=== PATIENT | male | born 1955 | race Caucasian/White ===

== ENCOUNTER 2025-05-02 23:33 | Inpatient (IN) | payer OTHER ==
[~2025-05-02] VITALS: Ht 170.2 cm; Wt 95.3 kg
[2025-05-03 00:13] LABS: PLATELET COUNT (AUTO) 196 K/uL (150-450); RED BLOOD CELL COUNT(AUTO) 4.36 MIL/uL (4.5-6.0); RED CELL DISTRIBUTION WIDTH 13.6 % (11.5-15.0); WHITE BLOOD COUNT (AUTO) 6.2 K/uL (4.3-11.0)
[2025-05-03] MEDS ORDERED: NITROGLYCERIN PACKET 1 GM PACKET ONE (00:18)
[2025-05-03] MEDS ORDERED: ASPIRIN 325 MG TABLET ONE (00:18)
[2025-05-03 00:20] LABS: CALCIUM, SERUM 8.9 mg/dL (8.5-10.1); CREATININE 0.9 mg/dL (0.6-1.3); SODIUM SERUM 143 mmol/L (136-145); UREA NITROGEN, BLOOD 22 mg/dL (7-18)
[2025-05-03] MEDS: ASPIRIN 325 MG TABLET PO ONE (00:24)
[2025-05-03] MEDS: NITROGLYCERIN PACKET 1 GM PACKET TD ONE (00:25)
[2025-05-03 00:46] LABS: INR 1.07 (0.91-1.10)
[2025-05-03] MEDS ORDERED: MORPHINE SULFATE INJ 4 MG/ML DISP.SYRIN ONE (01:02)
[2025-05-03] MEDS ORDERED: ONDANSETRON HCL/PF 4 MG/2 ML VIAL ONE (01:02)
[2025-05-03] MEDS: MORPHINE SULFATE INJ 2 MG/ML DISP.SYRIN IV ONE (01:15)
[2025-05-03] MEDS: ONDANSETRON HCL/PF 4 MG/2 ML VIAL IVP ONE (01:15)
[2025-05-03] MEDS ORDERED: MAG HYDROX/AL HYDROX/SIMETH 30 ML UDC PO PRN (02:00)
[2025-05-03] MEDS ORDERED: Z GUARD REMEDY 4 OZ OINT TP PRN (02:00)
[2025-05-03] MEDS ORDERED: MAGNESIUM HYDROXIDE 30 ML UDC PO PRN (02:00)
[2025-05-03] MEDS: MORPHINE SULFATE INJ 2 MG/ML DISP.SYRIN IV PRN (06:40)
[2025-05-03] MEDS: ASPIRIN 81 MG TAB.CHEW PO SCH (08:27)
[2025-05-03] MEDS: PANTOPRAZOLE 40 MG TABLET.DR PO SCH (08:27)
[2025-05-03] MEDS: ENOXAPARIN SODIUM 40 MG/0.4 ML DISP.SYRIN SQ SCH (08:28)
[2025-05-03] MEDS: ACETAMINOPHEN 325 MG TABLET PO PRN (09:23)
[2025-05-03 09:26] LABS: ALCOHOL, BLOOD < 10 mg/dL (0-10)
[2025-05-03] MEDS ORDERED: LOSA100T31 PO (09:49)
[2025-05-03] MEDS ORDERED: ISOS30TA86 PO (09:49)
[2025-05-03] MEDS ORDERED: EZET10TA16 PO (09:49)
[2025-05-03] MEDS ORDERED: HYDR12.55 PO (09:49)
[2025-05-03] MEDS ORDERED: ATEN50TA PO (09:49)
[2025-05-03] MEDS: ATORVASTATIN 10 MG TABLET PO SCH (10:30)
[2025-05-03] MEDS: DOSING PER PHARMACY-ZOSYN IV 1 EA EA IV STA (11:47)
[2025-05-03] MEDS: METOPROLOL TARTRATE 50 MG TABLET PO SCH (12:00)
[2025-05-03] MEDS: ZOSYN IVPB 3.375 G in IV D5W 50ml IV SCH (12:15)
[2025-05-03 13:02] LABS: LDL 22.0 mg/dL (0-99)
[2025-05-03 13:10] LABS: ASPARTATE AMINOTRANSFERASE 18.0 U/L (15-37); CALCIUM, SERUM 8.8 mg/dL (8.5-10.1); CREATININE 0.9 mg/dL (0.6-1.3); SODIUM SERUM 141.0 mmol/L (136-145); TOTAL PROTEIN, SERUM 6.7 g/dL (6.4-8.2); UREA NITROGEN, BLOOD 16.0 mg/dL (7-18)
[2025-05-03] MEDS ORDERED: ROPIVACAINE HCL 0.5% 5 MG/ML 30ML VIAL ONE (13:17)
[2025-05-03] MEDS ORDERED: FENTANYL PF 250MCG/5ML AMPUL ONE (13:18)
[2025-05-03] MEDS ORDERED: SUCCINYLCHOLINE CHLORIDE 20 MG/ML VIAL ONE (13:19)
[2025-05-03] MEDS ORDERED: ROCURONIUM BROMIDE 50 MG/5 ML ONE (13:19)
[2025-05-03] MEDS ORDERED: POTASSIUM CHLORIDE 10 MEQ/50 ML PREMIXED IVPB FOR PERIPHERAL LINE IV ONE (13:30)
[2025-05-03] MEDS: POTASSIUM CL. PREMIX PERIPHER. 50 ML IV SCH (13:30)
[2025-05-03] MEDS ORDERED: METOCLOPRAMIDE HCL 10 MG/2 ML VIAL IV PRN (16:30)
[2025-05-03] MEDS ORDERED: ONDANSETRON HCL/PF 4 MG/2 ML VIAL IVP PRN (16:30)
[2025-05-03] MEDS ORDERED: KETOROLAC TROMETHAMINE INJ 30 MG/ML VIAL IV PRN (16:30)
[2025-05-03] MEDS ORDERED: ANESTHESIA TRAY IN PYXIS 1 EA TRAY MC ONE (16:50)
[2025-05-03 20:00] VITALS: BP 126/79; TEMP 99.1; O2SAT 94
[2025-05-04] VITALS: BP 135/77; TEMP 98.8; O2SAT 93
[2025-05-04 04:00] VITALS: BP 138/82; TEMP 98.2; O2SAT 95
[2025-05-04 06:22] LABS: PLATELET COUNT (AUTO) 186 K/uL (150-450); RED BLOOD CELL COUNT(AUTO) 4.38 MIL/uL (4.5-6.0); RED CELL DISTRIBUTION WIDTH 14.1 % (11.5-15.0); WHITE BLOOD COUNT (AUTO) 9.6 K/uL (4.3-11.0)
[2025-05-04 06:33] LABS: ASPARTATE AMINOTRANSFERASE 29.0 U/L (15-37); CALCIUM, SERUM 8.7 mg/dL (8.5-10.1); CREATININE 0.9 mg/dL (0.6-1.3); PHOSPHORUS 2.4 mg/dL (2.5-4.9); SODIUM SERUM 142.0 mmol/L (136-145); TOTAL PROTEIN, SERUM 6.9 g/dL (6.4-8.2); UREA NITROGEN, BLOOD 15.0 mg/dL (7-18)
[2025-05-04 07:06] LABS: AMPHETAMINE, URINE NEGATIVE (NEGATIVE); BARBITURATE, URINE NEGATIVE (NEGATIVE); BENZODIAZEPINE, URINE NEGATIVE (NEGATIVE); CANNABINOID, URINE NEGATIVE (NEGATIVE); COCCAINE, URINE NEGATIVE (NEGATIVE)
[2025-05-04 07:18] LABS: OPIATE, URINE POSITIVE (NEGATIVE)
[2025-05-04 08:00] VITALS: BP 147/86; TEMP 98.2; O2SAT 95
[2025-05-04] MEDS: POTASSIUM CL. PREMIX PERIPHER. 50 ML IV SCH (09:38)
[2025-05-04 16:00] VITALS: BP 157/87; TEMP 99.2; O2SAT 94
[2025-05-04] MEDS: Sodium Phosphate 15 MMOL in IV NS 0.9% 245 ML IV ONE (16:23)
[2025-05-04] MEDS: IV 1/2NS 1000 ML 1,000 ML IV PRN (16:27)
[2025-05-04] MEDS: NICOTINE PATCH (21MG) 21 MG PATCH.TD24 TD SCH (18:07)
[2025-05-04 20:00] VITALS: BP 151/85; TEMP 99; O2SAT 97
[2025-05-04] MEDS: LIDOCAINE 5% (PATCH) 1 EA PATCH TP SCH (21:13)
[2025-05-05] VITALS (7 sets, daily range): BP systolic 152–172; BP diastolic 72–99; TEMP 98.4–99.7; O2SAT 93–97
[2025-05-05 07:58] LABS: ASPARTATE AMINOTRANSFERASE 43.0 U/L (15-37); CALCIUM, SERUM 9.2 mg/dL (8.5-10.1); CREATININE 1.0 mg/dL (0.6-1.3); SODIUM SERUM 143.0 mmol/L (136-145); TOTAL PROTEIN, SERUM 7.1 g/dL (6.4-8.2); UREA NITROGEN, BLOOD 18.0 mg/dL (7-18)
[2025-05-05] MEDS: hydrALAZINE HCL IV 20 MG VIAL IV PRN (09:57)
[2025-05-05] MEDS: ONDANSETRON HCL/PF 4 MG/2 ML VIAL IVP PRN (18:13)
[2025-05-06 04:00] VITALS: BP 170/113; TEMP 98.1; O2SAT 93
[2025-05-06 07:11] LABS: PLATELET COUNT (AUTO) 206 K/uL (150-450); RED BLOOD CELL COUNT(AUTO) 4.31 MIL/uL (4.5-6.0); RED CELL DISTRIBUTION WIDTH 13.8 % (11.5-15.0); WHITE BLOOD COUNT (AUTO) 6.6 K/uL (4.3-11.0)
[2025-05-06 07:54] LABS: ASPARTATE AMINOTRANSFERASE 288.0 U/L (15-37); CALCIUM, SERUM 9.0 mg/dL (8.5-10.1); CREATININE 0.8 mg/dL (0.6-1.3); SODIUM SERUM 143.0 mmol/L (136-145); TOTAL PROTEIN, SERUM 7.0 g/dL (6.4-8.2); UREA NITROGEN, BLOOD 17.0 mg/dL (7-18)
[2025-05-06 08:00] VITALS: BP 171/83; TEMP 98.1; O2SAT 93
[2025-05-06] MEDS: LOSARTAN POTASSIUM 50 MG TABLET PO SCH (08:55)
[2025-05-06] MEDS: ATENOLOL 50 MG TABLET PO SCH (08:56)
[2025-05-06] MEDS: HYDROCHLOROTHIAZIDE 25 MG TABLET PO SCH (08:56)
[2025-05-06] MEDS: EZETIMIBE 10 MG TABLET PO SCH (08:56)
[2025-05-06] MEDS: ISOSORBIDE MONONITRATE (30MG) 30 MG TAB.SR.24H PO SCH (08:56)
[2025-05-06] MEDS: hydrALAZINE HCL IV 20 MG VIAL IV PRN (10:29)
[2025-05-06] MEDS: POTASSIUM CL. PREMIX PERIPHER. 50 ML IV SCH (11:56)
[2025-05-06 16:00] VITALS: BP 176/95; TEMP 97.8; O2SAT 93
[2025-05-06] MEDS ORDERED: DIATR MEGLU/DIATRIZOATE SODIUM 30 ML BOTTLE (GASTROGRAPHIN) ONE (19:31)
[2025-05-06 20:00] VITALS: BP 158/100; TEMP 98.6; O2SAT 98
[2025-05-07 04:00] VITALS: BP 155/99; TEMP 98.2; O2SAT 99
[2025-05-07 07:00] LABS: PLATELET COUNT (AUTO) 215 K/uL (150-450); RED BLOOD CELL COUNT(AUTO) 4.16 MIL/uL (4.5-6.0); RED CELL DISTRIBUTION WIDTH 13.6 % (11.5-15.0); WHITE BLOOD COUNT (AUTO) 6.4 K/uL (4.3-11.0)
[2025-05-07 07:26] LABS: ASPARTATE AMINOTRANSFERASE 114.0 U/L (15-37); CALCIUM, SERUM 8.7 mg/dL (8.5-10.1); CREATININE 0.8 mg/dL (0.6-1.3); SODIUM SERUM 142.0 mmol/L (136-145); TOTAL PROTEIN, SERUM 6.7 g/dL (6.4-8.2); UREA NITROGEN, BLOOD 15.0 mg/dL (7-18)
[2025-05-07 08:00] VITALS: BP 180/105; TEMP 99; O2SAT 99
[2025-05-07] MEDS: POTASSIUM CHLORIDE 20 MEQ POWDER PACKET PO SCH (11:15)
[2025-05-07 16:00] VITALS: BP 161/97; TEMP 98.4; O2SAT 95
[2025-05-07 20:00] VITALS: BP 148/87; TEMP 99; O2SAT 96
[2025-05-07] MEDS: PANTOPRAZOLE 40 MG TABLET.DR PO SCH (21:15)
[2025-05-07] MEDS: POLYETHYLENE GLYCOL 3350 17 GM POWD.PACK PO SCH (21:16)
[2025-05-08] MEDS: ZOLPIDEM TARTRATE 5 MG TABLET PO PRN (00:56)
[2025-05-08 04:00] VITALS: BP 165/80; TEMP 98.2; O2SAT 96
[2025-05-08 06:59] LABS: PLATELET COUNT (AUTO) 210 K/uL (150-450); RED BLOOD CELL COUNT(AUTO) 4.13 MIL/uL (4.5-6.0); RED CELL DISTRIBUTION WIDTH 13.4 % (11.5-15.0); WHITE BLOOD COUNT (AUTO) 6.5 K/uL (4.3-11.0)
[2025-05-08 07:00] LABS: ASPARTATE AMINOTRANSFERASE 53.0 U/L (15-37); CALCIUM, SERUM 8.8 mg/dL (8.5-10.1); CREATININE 0.9 mg/dL (0.6-1.3); SODIUM SERUM 140.0 mmol/L (136-145); TOTAL PROTEIN, SERUM 6.4 g/dL (6.4-8.2); UREA NITROGEN, BLOOD 10.0 mg/dL (7-18)
[2025-05-08 08:00] VITALS: BP 153/90; TEMP 98.8; O2SAT 94
[2025-05-08] MEDS: METHIMAZOLE (5MG) 5 MG TABLET PO SCH (11:02)
[2025-05-08 16:00] VITALS: BP 127/77; TEMP 98.2; O2SAT 97
[2025-05-08 20:00] VITALS: BP 141/94; TEMP 98.6; O2SAT 97
[2025-05-09 04:00] VITALS: BP 167/92; TEMP 98.1; O2SAT 98
[2025-05-09 07:44] LABS: PLATELET COUNT (AUTO) 229 K/uL (150-450); RED BLOOD CELL COUNT(AUTO) 4.10 MIL/uL (4.5-6.0); RED CELL DISTRIBUTION WIDTH 13.3 % (11.5-15.0); WHITE BLOOD COUNT (AUTO) 6.5 K/uL (4.3-11.0)
[2025-05-09 07:57] LABS: ASPARTATE AMINOTRANSFERASE 39.0 U/L (15-37); CALCIUM, SERUM 9.1 mg/dL (8.5-10.1); CREATININE 0.8 mg/dL (0.6-1.3); SODIUM SERUM 139.0 mmol/L (136-145); TOTAL PROTEIN, SERUM 6.5 g/dL (6.4-8.2); UREA NITROGEN, BLOOD 12.0 mg/dL (7-18)
[2025-05-09 08:00] VITALS: BP 150/92; TEMP 98; O2SAT 93
[2025-05-09 12:00] VITALS: BP 97/65
[2025-05-09] MEDS ORDERED: POLY17PO29 PO (13:32)
[2025-05-09] MEDS ORDERED: PANT40TA49 PO (13:32)
[2025-05-09] MEDS ORDERED: NICO-762 TD (13:32)
[2025-05-09] MEDS ORDERED: AMOX-430 PO (13:32)
[2025-05-09] MEDS ORDERED: LIDO30AD10 TP (13:32)
[2025-05-09] MEDS ORDERED: METH5TAB70 PO (13:32)
== END 2025-05-09 17:29 | disposition home or self-care (01) | DRG 326 ==
LOC: ER 23:35 → TELE1 05-03 02:27 → MEDSG1 05-04 09:40
PROVIDERS: ADMIT Internal Medicine; ATTEND Nurse Practitioner Acute Care
PROC: 0DQ70ZZ Repair Stomach, Pylorus, Open Approach (ICD-10-PCS; principal; 2025-05-03 13:00)
DX: K25.5 Chronic or unspecified gastric ulcer with perforation (principal); K65.9 Peritonitis, unspecified; R18.8 Other ascites; E87.6 Hypokalemia; I10 Essential (primary) hypertension; F17.210 Nicotine dependence, cigarettes, uncomplicated; K66.0 Peritoneal adhesions (postprocedural) (postinfection); G47.33 Obstructive sleep apnea (adult) (pediatric); Z71.6 Tobacco abuse counseling; E78.5 Hyperlipidemia, unspecified; K44.9 Diaphragmatic hernia without obstruction or gangrene; E66.9 Obesity, unspecified; Z68.32 Body mass index [BMI] 32.0-32.9, adult; Z79.82 Long term (current) use of aspirin; E04.1 Nontoxic single thyroid nodule
CPT/HCPCS: 36415; 71045-TC; 76536-TC; 80048-TC; 80053-TC; 80061-TC; 80076-TC; 83605-TC; 83690-TC; 83735-TC; 84100-TC; 84155; 84165; 84439-TC; 84443-TC; 84484-TC; 85025-TC; 85378-TC; 85730-TC; 87070-TC; 87075-TC; 93307-TC; 93971-TC; 97110-TC; 97116-TC; 97530-TC; A4223; A6209; A6223; A6254; A9563; G0378; G0480; J0330; J0360; J1100; J1650; J1885; J2270; J2405; J2543; J2704; J2795; J3010; J3480; J3490; J7030; J7050; J7060; Q9963